=== PATIENT | female | born 1940 | race African-American/Black ===

== ENCOUNTER 2017-11-29 14:48 | Emergency (ER) | payer OTHER ==
[~2017-11-29] VITALS: Ht 165.1 cm; Wt 70.0 kg
[2017-11-29] MEDS ORDERED: INSULIN (14:52)
[2017-11-29 16:47] LABS: BASOPHILS % 0.2 % (0.0-2.0); EOSINOPHILS % 8.8 % (0.0-5.0); HEMATOCRIT. 39.8 % (36.0-48.0); HEMOGLOBIN. 13.2 g/dL (12.0-16.0); LYMPHOCYTES % 27.8 % (20.0-50.0); MEAN CORPUSCULAR HEMOGLOBIN 29.2 pg (28.0-32.0); MEAN CORPUSCULAR VOLUME 87.8 fL (81.0-99.0); MEAN PLATELET VOLUME 8.4 fl (7.4-10.4); MONOCYTES % 12.9 % (2.0-8.0); NEUTROPHILS % 50.3 % (40.0-76.0); PLATELET 280 x1000/uL (130-400); RED BLOOD CELL COUNT 4.53 mill/uL (4.2-5.4); RED CELL DISTRIBUTION WIDTH 14.1 % (11.6-14.6)
[2017-11-29 16:57] LABS: CHLORIDE 104 mEq/L (98-107)
[2017-11-29 18:30] VITALS: BP 153/72
== END 2017-11-29 18:34 | disposition home or self-care (01) ==
LOC: ER 15:00
DX: S09.8XXA Other specified injuries of head, initial encounter (principal); M79.1 Myalgia; I10 Essential (primary) hypertension; E11.9 Type 2 diabetes mellitus without complications; N28.9 Disorder of kidney and ureter, unspecified; Z88.0 Allergy status to penicillin; Z88.2 Allergy status to sulfonamides; Z79.4 Long term (current) use of insulin; V49.9XXA Car occupant (driver) (passenger) injured in unspecified traffic accident, initial encounter; Y93.89 Activity, other specified; Y99.8 Other external cause status; Y92.410 Unspecified street and highway as the place of occurrence of the external cause
CPT/HCPCS: 36415; 70450; 71045; 72125; 72170; 80053; 83690; 85025; 86850; 86900; 99285

== ENCOUNTER 2017-12-08 06:15 | Inpatient (IN) | payer OTHER ==
[~2017-12-08] VITALS: Ht 170.2 cm; Wt 78.0 kg
[~2017-12-08 06:15] MED LIST: INSULIN
[2017-12-08] MEDS ORDERED: ONDANSETRON HCL 4MG/2ML VIAL IV STA (06:43)
[2017-12-08] MEDS ORDERED: SODIUM CHLORIDE 0.9% 500 ML IV ONE (06:43)
[2017-12-08] MEDS ORDERED: TRAMADOL 50MG TABLET PO ONE (06:45)
[2017-12-08 07:04] LABS: BASOPHILS % 2.2 % (0.0-2.0); EOSINOPHILS % 0.9 % (0.0-5.0); HEMATOCRIT. 37.6 % (36.0-48.0); HEMOGLOBIN. 12.5 g/dL (12.0-16.0); LYMPHOCYTES % 24.3 % (20.0-50.0); MEAN CORPUSCULAR HEMOGLOBIN 29.1 pg (28.0-32.0); MEAN CORPUSCULAR VOLUME 87.8 fL (81.0-99.0); MEAN PLATELET VOLUME 8.1 fl (7.4-10.4); MONOCYTES % 6.9 % (2.0-8.0); NEUTROPHILS % 65.7 % (40.0-76.0); PLATELET 258 x1000/uL (130-400); RED BLOOD CELL COUNT 4.28 mill/uL (4.2-5.4); RED CELL DISTRIBUTION WIDTH 14.1 % (11.6-14.6)
[2017-12-08 07:13] LABS: CHLORIDE 99 mEq/L (98-107)
[2017-12-08 07:15] LABS: INR 1.2; PROTHROMBIN TIME 12.1 sec (9.4-11.6)
[2017-12-08 07:19] LABS: CREATINE KINASE 267 IU/L (26-192); TROPONIN I < 0.02 ng/mL (0.00-0.04)
[2017-12-08 07:26] LABS: CREATINE KINASE MB FRACTION 2.2 ng/mL (0.5-3.6)
[2017-12-08] MEDS ORDERED: LEVOFLOXACIN 500MG PREMIX 100 ML IV ONE (08:00)
[2017-12-08 08:13] LABS: CLARITY URINE CLEAR (CLEAR); COLOR URINE YELLOW (YELLOW); KETONES URINE NEGATIVE (NEGATIVE); LEUKOCYTE ESTERASE URINE NEGATIVE (NEGATIVE); NITRITE URINE NEGATIVE (NEGATIVE); OCCULT BLOOD URINE NEGATIVE (NEGATIVE); PH URINE 5.5 (4.5-8.0); PROTEIN URINE NEGATIVE (NEGATIVE); UROBILINOGEN URINE 0.2 E.U./dL (0.2-1.0)
[2017-12-08] MEDS: SODIUM CHLORIDE 0.45% 1,000 ML IV SCH (16:49)
[2017-12-08] MEDS ORDERED: NA PHOS,M-B/NA PHOS,DI-BA ENEMA 118ML PR PRN (17:00)
[2017-12-08] MEDS ORDERED: ENOXAPARIN 40MG/0.4ML SYR SUBCUT SCH (17:00)
[2017-12-08] MEDS ORDERED: HYDROCODONE/ACETAMINOPHEN 5/325MG TABLET PO PRN (19:30)
[2017-12-08 20:00] VITALS: BP_SYST 129; BP_SYST 130; BP_DIAS 44; BP_DIAS 54
[2017-12-08] MEDS: ENOXAPARIN 30MG/0.3ML SYR SUBCUT SCH (20:00)
[2017-12-08] MEDS ORDERED: GUAIFENESIN 200MG/10ML SUGAR FREE UDC PO PRN (20:00)
[2017-12-08] MEDS ORDERED: HYDROMORPHONE HCL/PF 2MG/ML CPJ IV PRN (20:00)
[2017-12-08] MEDS ORDERED: DIPHENHYDRAMINE 50MG/ML VIAL IV PRN (20:00)
[2017-12-08] MEDS ORDERED: ACETAMINOPHEN 325MG TABLET PO PRN (20:00)
[2017-12-08] MEDS ORDERED: ONDANSETRON HCL 4MG/2ML VIAL IV PRN (20:00)
[2017-12-08] MEDS ORDERED: MAGNESIUM/ALUMINUM HYDROXIDE/SIMETHICONE 30ML UDC PO PRN (20:00)
[2017-12-08] MEDS ORDERED: LORAZEPAM 2MG/ML CPJ IV PRN (20:00)
[2017-12-08] MEDS ORDERED: IPRATROPIUM/ALBUTEROL 0.5-3(2.5)MG/3ML NEB INH PRN (20:00)
[2017-12-08] MEDS ORDERED: CLONIDINE 0.1MG TABLET PO PRN (20:00)
[2017-12-08] MEDS ORDERED: DOCUSATE SODIUM 100MG CAPSULE PO PRN (20:00)
[2017-12-09] VITALS: BP 129/47
[2017-12-09] MEDS ORDERED: INSHUMSS SUBCUT (03:17)
[2017-12-09] MEDS ORDERED: LEVVL SQ (03:17)
[2017-12-09] MEDS ORDERED: VALS160T27 PO (03:17)
[2017-12-09] MEDS ORDERED: INSLIS SUBCUT (03:17)
[2017-12-09] MEDS ORDERED: ROSU40TA PO (03:17)
[2017-12-09 04:00] VITALS: BP 154/62
[2017-12-09] MEDS ORDERED: DEXTROSE 50% WATER 50ML SYRINGE IV PRN (04:00)
[2017-12-09] MEDS: SODIUM CHLORIDE 0.45% 1,000 ML IV SCH ×2 (06:43→21:55)
[2017-12-09] MEDS: BLOOD SUGAR DIAGNOSTIC STRIP TEST SCH ×4 (07:01→21:00)
[2017-12-09 08:00] VITALS: BP 111/52
[2017-12-09 08:12] LABS: BASOPHILS % 1.3 % (0.0-2.0); EOSINOPHILS % 4.2 % (0.0-5.0); HEMATOCRIT. 35.8 % (36.0-48.0); HEMOGLOBIN. 11.8 g/dL (12.0-16.0); LYMPHOCYTES % 31.5 % (20.0-50.0); MEAN CORPUSCULAR HEMOGLOBIN 28.9 pg (28.0-32.0); MEAN CORPUSCULAR VOLUME 87.9 fL (81.0-99.0); MEAN PLATELET VOLUME 8.6 fl (7.4-10.4); MONOCYTES % 12.6 % (2.0-8.0); NEUTROPHILS % 50.4 % (40.0-76.0); PLATELET 233 x1000/uL (130-400); RED BLOOD CELL COUNT 4.07 mill/uL (4.2-5.4); RED CELL DISTRIBUTION WIDTH 13.8 % (11.6-14.6)
[2017-12-09 08:33] LABS: CHLORIDE 100 mEq/L (98-107)
[2017-12-09] MEDS: INSULIN LISPRO 100 UNITS/ML SUBCUT SCH ×4 (08:49→22:21)
[2017-12-09] MEDS: LOSARTAN POTASSIUM 100 MG TABLET PO SCH (08:50)
[2017-12-09 08:56] LABS: HDL CHOLESTEROL 62 mg/dL (40-59); LDL CHOLESTEROL 89 mg/dL (5-100); T4 FREE 0.84 ng/dL (0.76-1.46); TROPONIN I < 0.02 ng/mL (0.00-0.04)
[2017-12-09] MEDS ORDERED: NON FORMULARY PATIENT HOME MED EA XX SCH ×2 (09:00)
[2017-12-09 12:00] VITALS: BP_SYST 122; BP_SYST 134; BP_SYST 142; BP_DIAS 54; BP_DIAS 65
[2017-12-09 16:00] VITALS: BP 140/55
[2017-12-09] MEDS ORDERED: TRAMADOL 50MG TABLET PO PRN (18:00)
[2017-12-09 20:00] VITALS: BP 112/40
[2017-12-09] MEDS: ENOXAPARIN 30MG/0.3ML SYR SUBCUT SCH (20:00)
[2017-12-09] MEDS ORDERED: ATORVASTATIN CALCIUM 40MG TABLET PO SCH (21:00)
[2017-12-10] VITALS: BP 141/54
[2017-12-10 00:09] LABS: CREATINE KINASE MB FRACTION 2.5 ng/mL (0.5-3.6)
[2017-12-10] MEDS: BLOOD SUGAR DIAGNOSTIC STRIP TEST SCH ×3 (06:28→18:01)
[2017-12-10 07:12] LABS: BASOPHILS % 0.9 % (0.0-2.0); EOSINOPHILS % 8.6 % (0.0-5.0); HEMATOCRIT. 35.5 % (36.0-48.0); HEMOGLOBIN. 11.9 g/dL (12.0-16.0); LYMPHOCYTES % 31.9 % (20.0-50.0); MEAN CORPUSCULAR VOLUME 86.8 fL (81.0-99.0); MEAN PLATELET VOLUME 8.2 fl (7.4-10.4); MONOCYTES % 11.3 % (2.0-8.0); NEUTROPHILS % 47.3 % (40.0-76.0); PLATELET 215 x1000/uL (130-400); RED BLOOD CELL COUNT 4.09 mill/uL (4.2-5.4); RED CELL DISTRIBUTION WIDTH 14.3 % (11.6-14.6)
[2017-12-10 07:47] LABS: CREATINE KINASE MB FRACTION 1.8 ng/mL (0.5-3.6)
[2017-12-10 08:00] VITALS: BP 154/52
[2017-12-10] MEDS: LOSARTAN POTASSIUM 100 MG TABLET PO SCH (08:40)
[2017-12-10] MEDS: INSULIN LISPRO 100 UNITS/ML SUBCUT SCH ×3 (08:54→17:40)
[2017-12-10 12:00] VITALS: BP 133/53
[2017-12-10 15:44] VITALS: BP 127/47
[2017-12-10 16:00] VITALS: BP 127/47
== END 2017-12-10 19:30 | disposition home or self-care (01) | DRG 682 ==
LOC: ER 07:22 → 6EST 10:09 → EDBEDREQSVC 10:10 → ENRESERV 17:46
PROVIDERS: ADMIT Internal Medicine; ATTEND Internal Medicine
DX: N17.0 Acute kidney failure with tubular necrosis (principal); J18.9 Pneumonia, unspecified organism; E11.21 Type 2 diabetes mellitus with diabetic nephropathy; E11.65 Type 2 diabetes mellitus with hyperglycemia; E86.0 Dehydration; E11.22 Type 2 diabetes mellitus with diabetic chronic kidney disease; I12.9 Hypertensive chronic kidney disease with stage 1 through stage 4 chronic kidney disease, or unspecified chronic kidney disease; N18.9 Chronic kidney disease, unspecified; E78.00 Pure hypercholesterolemia, unspecified; E78.5 Hyperlipidemia, unspecified; I25.10 Atherosclerotic heart disease of native coronary artery without angina pectoris; Z79.4 Long term (current) use of insulin; Z79.899 Other long term (current) drug therapy; Z90.710 Acquired absence of both cervix and uterus; Z88.0 Allergy status to penicillin; Z88.2 Allergy status to sulfonamides
CPT/HCPCS: 36415; 70551; 71045; 76770; 80048; 80053; 80061; 81003; 82550; 82553; 82962; 83036; 83605; 83690; 83880; 84439; 84443; 84484; 85025; 85379; 85610; 85730; 87040; 87070; 87086; 87430; 87804; 93005; 93970; 96361; 96365; 96375; 99285; J1650; J1815; J1956; J2405; J7040